=== PATIENT | male | born 1995 | race Two or more races ===

== ENCOUNTER 2024-08-01 10:15 | Emergency (ER) | payer SELFPAY ==
[~2024-08-01] VITALS: Ht 180.3 cm; Wt 63.6 kg
[2024-08-01 10:28] VITALS: BP 130/90; PULSE 85; RESP 16; O2SAT 98
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
--- NOTE | 2024-08-01 12:00 | DVH ---
CLINICAL INDICATION: trauma TECHNIQUE: 3 radiographic views of the left shoulder were obtained. Comparison: None FINDINGS/IMPRESSION: There is no evidence of acute fracture or dislocation. The visualized joint space is well maintained. The alignment is anatomical. There is no radiopaque foreign body.
[2024-08-01] MEDS ORDERED: HYDROcodone-ACET 5/325MG TAB PO ONE (12:15)
== END 2024-08-01 13:39 | disposition home or self-care (01) ==
LOC: EDBD 10:15 → ER 10:15
DX: S46.812A Strain of other muscles, fascia and tendons at shoulder and upper arm level, left arm, initial encounter (principal); V43.52XA Car driver injured in collision with other type car in traffic accident, initial encounter; Y93.I9 Activity, other involving external motion; Y92.488 Other paved roadways as the place of occurrence of the external cause; Y99.8 Other external cause status; F17.200 Nicotine dependence, unspecified, uncomplicated
CPT/HCPCS: 73030